=== PATIENT | female | born 1965 | race African-American/Black ===

== ENCOUNTER 2017-03-31 22:19 | Emergency (ER) | payer SELFPAY ==
[~2017-03-31] VITALS: Ht 170.2 cm; Wt 47.6 kg
[2017-03-31 22:55] VITALS: BP 150/92
[2017-04-01] MEDS ORDERED: KETOROLAC TROMETH 60MG/2ML VIAL IM ONE (02:00)
== END 2017-04-01 03:05 | disposition home or self-care (01) ==
LOC: ER 22:19
DX: S33.5XXA Sprain of ligaments of lumbar spine, initial encounter (principal); M79.605 Pain in left leg; X58.XXXA Exposure to other specified factors, initial encounter; Y93.89 Activity, other specified; Y99.8 Other external cause status; Y92.89 Other specified places as the place of occurrence of the external cause
CPT/HCPCS: 72100